=== PATIENT | female | born 1980 | race Caucasian/White ===

== ENCOUNTER 2022-07-21 16:12 | Emergency (ER) | payer OTHER ==
[~2022-07-21] VITALS: Wt 111.1 kg
[~2022-07-21 16:12] MED LIST: ANAPROX DS550 MG PO; BIRTH CONTROL1 EAC1; CELEXA40 MG PO; CLINDAMYCIN HC300 MG PO; FLEXERIL10 MG PO; HYDROCODONE BIT1 T11 PO; HYDROCODONE/ACE1 T14 PO; IBUPROFEN 30 M800 MG PO; LAMICTAL100 MG PO; MEDROL DOSEPAK4 MG PO; MOTRIN800 MG PO; PROVENTIL0.09 MG/AC IH; PROVERA10 MG PO; RISPERDAL3 M1 PO; TYLENOL W/CODEI1 TA2 PO; ULTRAM50 MG PO; ZITHROMAX Z PA250 MG PO
[2022-07-21 17:41] LABS: BASO % 0.4 % (0.0-1.0); EOS # 0.2 10*3/uL (0.0-0.4); LYMPH # 1.5 10*3/uL (1.3-4.4); LYMPH % 15.2 % (27.0-41.0); MEAN CELL VOLUME 87.3 fl (81.0-99.0); MEAN CORPUSCULAR HGB 27.5 pg (27.0-31.0); MEAN CORPUSCULAR HGB CONC 31.5 g/dl (33.0-37.0); MEAN PLATELET VOLUME 9.8 fl (9.6-12.3); MONO # 0.9 10*3/uL (0.1-1.0); MONO % 9.6 % (3.0-9.0); NEUT % 72.6 % (47.0-73.0); PLATELET COUNT AUTOMATED 214 10*3/uL (130-400); RED BLOOD COUNT 4.58 10*6/uL (4.10-5.10); RED CELL DISTRI WIDTH 13.9 % (0-14.5); WHITE BLOOD COUNT 9.6 10*3/uL (4.8-10.8)
[2022-07-21 17:58] LABS: ALKALINE PHOSPHATASE 85 U/L (46-116); BUN 7 mg/dl (9-23); CHLORIDE 100 mmol/L (98-107); SGPT/ALT 24 U/L (10-49)
[2022-07-21] MEDS ORDERED: PREDNISONE20 M1 PO (18:25)
[2022-07-21] MEDS ORDERED: ZITHROMAX250 MG PO (18:25)
== END 2022-07-21 20:00 | disposition home or self-care (01) ==
LOC: ED 16:12
PROVIDERS: Nurse Practitioner
DX: J40 Bronchitis, not specified as acute or chronic (principal); Z20.822 Contact with and (suspected) exposure to COVID-19; J02.9 Acute pharyngitis, unspecified; J98.11 Atelectasis; Z98.51 Tubal ligation status